=== PATIENT | female | born 1970 | race Caucasian/White ===

== ENCOUNTER 2018-04-08 14:00 | Emergency (ER) | payer SELFPAY ==
[~2018-04-08] VITALS: Ht 154.9 cm; Wt 69.0 kg
[2018-04-08] MEDS ORDERED: HYDROCODONE/ACETAMINOPHEN 5/325MG TABLET PO ONE (22:15)
[2018-04-08] MEDS ORDERED: HYDROCODONE/ACETAMINOPHEN 5/325MG TABLET PO SCH (22:30)
[2018-04-08 22:35] VITALS: BP 122/76
== END 2018-04-08 22:51 | disposition home or self-care (01) ==
LOC: ER 18:24
DX: M25.571 Pain in right ankle and joints of right foot (principal); W01.0XXA Fall on same level from slipping, tripping and stumbling without subsequent striking against object, initial encounter; Y93.89 Activity, other specified; Y92.018 Other place in single-family (private) house as the place of occurrence of the external cause
CPT/HCPCS: 73610; 81025; 99283